=== PATIENT | male | born 1955 | race Caucasian/White ===

== ENCOUNTER → 2024-06-21 10:00 | Outpatient (BNV) | payer OTHER, SELFPAY | PROVIDERS: PCP Internal Medicine; Referring Provider Internal Medicine; Visit Provider Internal Medicine | DX: C44.42 Squamous cell carcinoma of skin of scalp and neck (principal); C77.0 Secondary and unspecified malignant neoplasm of lymph nodes of head, face and neck; B20 Human immunodeficiency virus [HIV] disease | CPT/HCPCS: 99205; G2211 ==